=== PATIENT | female | born 1960 | race Caucasian/White ===

== ENCOUNTER 2017-04-28 13:12 | Emergency (ER) | payer BC ==
[2017-04-28 13:20] VITALS: BMI 32.8
[2017-04-28] MEDS ORDERED: CATAPRES TAB 0.2 MG ONE ×3 (13:53→15:41)
[2017-04-28] MEDS ORDERED: CATAPRES TAB 0.2 MG PO ONE ×3 (13:53→15:54)
--- NOTE | 2017-04-28 14:11 | DR.GENAD ---
HPI - PCP Primary Care Physician: KENY - Complaint/Symptoms Chief Complaint Doctors Comments: Patient presents for evaluation of her hypertension. She states that her blood pressure was elevated at her physicians office and was referred to the ED for evaluation. She denies having hypertension although she takes medication intermittently for elevated BP. She also reports that went to her optomitrist due to blurred vision of the left eye and he was concerned and referred her to her primary care physician who sent her to the ED for evaluation and treatment. Her BP upon presentation was 240/ 115. Chief Complaint:: PT WENT TO DOCTOR AND THEY SENT HER TO THE HOSPITAL TO GET HER BLOOD PRESSURE DOWN - Source History Provided: Patient - Mode of Arrival Mode of Arrival: Ambulatory - Timing Onset of Chief Complaint: 04/26/17 PMH - PMH Past Medical History: Yes Past Medical History: Hypertension Past Medical History Comment: NEW ONSET OF HIGH BLOOD PRESSURE OFF AND ON Past Surgical History: Yes Surgical History: , Cholecystectomy, Hysterectomy - Family History History of Family Medical Conditions: Yes Family Medical History: Diabetes Mellitus, Cancer, Heart Failure, Hypertension - Social History Does patient currently use any type of tobacco product: No Have you used tobacco products in the last 12 months: No Type of Tobacco Use: None Does any household member use tobacco: No Alcohol Use: None Do you use any recreational Drugs:: No Lives With: Spouse Lives Where: Home - infectious screening In the last 2 months have you had wt loss of >10#?: NO Have you had fever, night sweats or hemotysis?: No Have you traveled outside the country in the last 6 months?: No Isolation: Standard ROS - Review of Systems Eyes: No Symptoms Reported ENTM: No Symptoms Reported Respiratoy: No Symptoms Reported Cardiovascular: No Symptoms Reported Gastrointestinal/Abdominal: No Symptoms Reported Genitourinary: No Symptoms Reported Neurological: No Symptoms Reported Musculoskeletal: No Symptoms Reported Integumentary: No Symptoms Reported Hematologic/Lymphatic: No Symptoms Reported Endocrine: No Symptoms Reported Psychiatric: No Symptoms Reported All Other Systems: Reviewed and Negative PE - Vital Signs Vitals: Temperature 97.1 F Pulse Rate [Left Brachial] 81 Pulse Rate 90 Respiratory Rate 17 Blood Pressure [Left Arm] 157/72 Blood Pressure 243/103 O2 Sat by Pulse Oximetry 97 - General General Appearance: Alert, In No Apparent Distress - Head Head Exam: Normal Inspection, Atraumatic - Eyes Eye exam: Normal Appearance, PERRL, EOMI - ENT ENT Exam: Normal Exam External Ear Exam: Normal External Inspection TM/Canal Exam: Bilateral Normal Nose Exam: Normal Nose Exam Mouth Exam: Normal Inspection Throat Exam: Normal Inspection - Neck Neck Exam: Normal Inspection, Full ROM - Chest Chest Inspection: Normal Inspection - Respiratory Respiratory Exam: Normal Lung Sounds Bilat Respiratory Exam: Bilateral Clear to Auscultation - Cardiovascular Cardiovascular Exam: Regular Rate, Normal Rhythm - Abdominal Exam Abdominal Exam: Normal Inspection Abdominal Tenderness: negative: RUQ, RLQ, LUQ, LLQ, Epigastrium, Suprapubic, Diffuse, Mild, Moderate, Severe, Other - Extremities Extremities Exam: Normal Inspection, Full ROM - Back Back Exam: Normal Inspection, Full ROM - Neurologic Neurological Exam: Alert, Oriented X3, CN II-XII Intact - Psychiatric Psychiatric Exam: Normal Affect - Skin Skin Exam: Warm, Dry, Intact Course - Reevaluation 1st: Improved (BP 157/72 upon admission s/p treatment) - Consultation Called: 16:40 (Dr Villarreal agreed to accept for admission ) ROR - XRAY XRAY Interpreted by: Radiologist (CT Brain;There are scattered hypodensities in the left frontal lobe, right pretty radiata and bilateral subinsular regions that may reflext chronic ischemic changes versus demyelinating disease. No evidence of acute hemorrhage, midline shift, mass effect or abnormal extra- axial fluid collection. The ventricular system is symmetric and nondilated. The soft tissues and osseous structures are unremarkable. The visualized paranasal sinuses are clear. The globes appear normal. Impressions:Scattered hypodensities in left frontal lobe, right pretty radiata and bilateral subinsular region,; primary differentail considerations would be ischemic changes versus demyelinating disease.) - Diagnosis Discharge Problem: Hypertensive urgency - Discharge Plan Condition: Stable - Follow ups/Referrals Follow ups/Referrals: NFD,None [Primary Care Provider] - 3 days - Instructions
[2017-04-28] MEDS ORDERED: NORMODYNE INJ 20 MG VIAL ONE (16:14)
[2017-04-28] MEDS ORDERED: NORMODYNE INJ 100 MG VIAL IVP ONE (16:19)
[2017-04-28] MEDS ORDERED: NORMODYNE INJ 100 MG VIAL 250 MG in NS 250 ML IV 200 ML IV PRN (16:21)
--- NOTE | 2017-04-28 17:34 | CT ---
HISTORY: Abnormal left eye vision, hypertension Study: CT brain without contrast Comparison: None Technique: Multiple axial images of the brain were obtained from the skull base to the vertex without administra tion of IV contrast. Dose reduction techniques including Automated Exposure Control (AEC) and adjust ment of mA and kV were utilized. Findings: There are scattered hypodensities in the left frontal lobe, right pretty radiata and bilateral subins ular regions that may reflect chronic ischemic changes versus demyelinating disease. No evidence of acute hemorrhage, midline shift, mass effect or abnormal extra-axial fluid collection. The ventricul ar system is symmetric and nondilated. The soft tissues and osseous structures are unremarkable. The visualized paranasal sinuses are clear. The globes appear normal. IMPRESSION: 1. Scattered hypodensities in left frontal lobe, right pretty radiata and bilateral subinsular region ; primary differential considerations would be ischemic changes versus demyelinating disease. Reported By:
[2017-04-28] MEDS ORDERED: NS 1000 ML 1,000 ML IV SCH (18:00)
[2017-04-28] MEDS ORDERED: ZESTRIL TAB 20 MG PO SCH (19:00)
[2017-04-29 06:22] LABS: BASOPHILS % (AUTO) 0.6 % (0.2-1.0); EOSINOPHILS # (AUTO) 0.1 x10^3/uL (0.0-0.2); EOSINOPHILS % (AUTO) 1.5 % (0.9-2.9); HEMATOCRIT 37.8 % (36.0-47.0); HEMOGLOBIN 13.4 g/dL (12.0-16.0); LYMPHOCYTES # (AUTO) 2.5 X10^3/uL (1.3-2.9); LYMPHOCYTES % (AUTO) 29.9 % (21.0-51.0); MEAN CORPUSCULAR HEMOGLOBIN 30.6 pg (27.0-34.0); MEAN CORPUSCULAR HGB CONC 35.5 g/dL (33.0-35.0); MEAN CORPUSCULAR VOLUME 86.2 fL (80.0-100.0); MEAN PLATELET VOLUME 8.6 fL (7.4-11.0); MONOCYTES # (AUTO) 0.6 x10^3/uL (0.3-0.8); MONOCYTES % (AUTO) 6.9 % (0.0-13.0); NEUTROPHILS # (AUTO) 5.1 x10^3/uL (2.2-4.8); NEUTROPHILS % (AUTO) 61.1 % (42.0-75.0); PLATELET COUNT 205 X10^3/uL (150.0-450.0); RED BLOOD COUNT 4.38 X10^6/uL (3.5-5.4); RED CELL DISTRIBUTION WIDTH 12.6 % (11.6-16.5); WHITE BLOOD COUNT 8.4 X10^3/uL (3.6-10.0)
[2017-04-29 07:05] LABS: ALANINE AMINOTRANSFERASE 34 Units/L (12-78); ALBUMIN 3.1 g/dL (3.4-5.0); ALKALINE PHOSPHATASE 63 Units/L (46-116); ASPARTATE AMINO TRANSFERASE 15 Units/L (15-37); BLOOD UREA NITROGEN 13 mg/dL (7-18); CALCIUM 8.3 mg/dL (8.5-10.1); CARBON DIOXIDE 27.6 mmol/L (21-32); CHLORIDE 105 mmol/L (98-107); COR NA(FOR HYPERGLY) 142 mmol/L (136-145); CREATININE 0.83 mg/dL (0.55-1.02); SODIUM 140 mmol/L (136-145); TOTAL PROTEIN 6.3 g/dL (6.4-8.2); eGFR BLACK RACES > 60 (>60); eGFR NON BLACK RACES > 60 (>60)
[2017-04-29] MEDS ORDERED: ZESTRIL TAB 10 MG PO SCH (09:00)
[2017-04-29 10:43] VITALS: BP 169/82
--- NOTE | 2017-05-21 22:45 | DR.CARTERS ---
Short Stay Summary - Short Stay Summary for: Short Stay Summary for Date of:: 04/29/17 - Admission Date Date of Admission: 04/28/17 - Discharge Date Discharge Date: 04/29/17 - Admission Diagnoses (1) Hypertensive urgency Status: Acute - Hospital Course Hospital Course: Patient presented to the emergency room with reports of high blood pressure. Patient seen in our office and referred to emergency room . Patient reported blurred vision to left eye. On arrival to the emergency room patient noted with a blood pressure of 243/103. Patient given Catapres 0.2mg x3 followed by Normodyne 20mg IV x1 with minimal decrease in blood pressure noted. Medical History: UTI's, Carpal Tunnel. Medications: NS @80ml/hr, Catapres 0.2mg po x3, Normodyne 20mg IV x1. Abnormal Labs: MCHC 35.5, Glucose 199, Calcium 8.3, Total Protein 6.3, Albumin 3.1, A/G Ratio 1.0. Brain CT: Scattered hypodensities in left frontal lobe, right pretty radiata and bilateral subinsular region; primary defferential considerations would be ischemic changes versus demyelinating disease. Patient admitted to the hosptial. Patient started on Aspirin 81 po daily, Lisinopril 20mg po daily, and Norvasc 10mg po daily. The next morning, blood pressure was 154/74, pulse 72. Patient reported vision was improved and she felt better. We planned for discharge with medication changes. Instructions for medications and follow up were discussed with patient and family, both voiced understanding. Patient discharged home in stable condition with family. - Discharge Medications Discharge Medications: Aspirin EC [ASPIRIN EC 81 MG *] 81 mg PO DAILY #90 tab 04/29/17 [Rx] Lisinopril 20 mg PO DAILY #30 tablet 04/29/17 [Rx] Metoprolol Succinate Ext Rel [TOPROL XL 25 MG *] 1 tab PO DAILY 05/08/17 Amlodipine Besylate [NORVASC 10 MG *] 10 mg PO DAILY #30 tab 05/09/17 - Discharge Plan Disposition: 01 HOME, SELF-CARE Condition: Stable Prescriptions: Aspirin EC [ASPIRIN EC 81 MG *] 81 mg PO DAILY #90 tab Lisinopril 20 mg PO DAILY #30 tablet - Follow up/Referrals Follow up/Referrals: Miguel Villarreal [STAFF PHYSICIAN] - 05/06/17 10:30 am - Instructions Instructions: Form - Blood Pressure Record Sheet, Hypertension, [id number], Managing Your High Blood Pressure Additional Instructions: DIET TOLERATED. ACTIVITY TOLERATED. Forms: Patient Portal
== END 2017-04-29 11:30 | disposition home or self-care (01) ==
LOC: ER 13:31 → ICU 17:57
PROVIDERS: ADMIT Internal Medicine; ATTEND Internal Medicine
DX: I16.0 Hypertensive urgency (principal); E11.65 Type 2 diabetes mellitus with hyperglycemia; I10 Essential (primary) hypertension; Z79.1 Long term (current) use of non-steroidal anti-inflammatories (NSAID)
CPT/HCPCS: 36415; 70450; 80053; 85025; 96365; 96374; 99283; 99284; 99285; A4216; A4222; G0378; J3490

== ENCOUNTER 2017-05-08 11:23 | Inpatient (IN) | payer BC ==
[2017-05-08] MEDS ORDERED: NS 1/2 1000 ML IV 1,000 ML IV ONE (12:26)
[2017-05-08] MEDS: NS 1/2 1000 ML IV 1,000 ML IV SCH (12:39)
[2017-05-08] MEDS: NORMODYNE INJ 20 MG VIAL IVP PRN ×5 (12:40→17:38)
[2017-05-08 13:10] LABS: BILIRUBIN,URINE NEGATIVE (NEGATIVE); BLOOD/HEMOGLOBIN,URINE 1+ (NEGATIVE); GLUCOSE, URINE NEGATIVE (NEGATIVE); KETONES,URINE NEGATIVE (NEGATIVE); LEUKOCYTE ESTERASE ,URINE NEGATIVE (NEGATIVE); NITRITES,URINE NEGATIVE (NEGATIVE); PROTEIN,URINE 1+ (NEGATIVE); UROBILINOGEN,URINE NORMAL (NORMAL)
[2017-05-08 13:12] LABS: BASOPHILS # (AUTO) 0.1 X10^3/uL (0.0-0.1); BASOPHILS % (AUTO) 0.7 % (0.2-1.0); EOSINOPHILS # (AUTO) 0.1 x10^3/uL (0.0-0.2); EOSINOPHILS % (AUTO) 0.6 % (0.9-2.9); HEMATOCRIT 42.5 % (36.0-47.0); LYMPHOCYTES # (AUTO) 3.2 X10^3/uL (1.3-2.9); LYMPHOCYTES % (AUTO) 36.9 % (21.0-51.0); MEAN CORPUSCULAR HEMOGLOBIN 30.2 pg (27.0-34.0); MEAN CORPUSCULAR HGB CONC 35.1 g/dL (33.0-35.0); MEAN CORPUSCULAR VOLUME 85.9 fL (80.0-100.0); MONOCYTES # (AUTO) 0.5 x10^3/uL (0.3-0.8); MONOCYTES % (AUTO) 6.3 % (0.0-13.0); NEUTROPHILS # (AUTO) 4.8 x10^3/uL (2.2-4.8); NEUTROPHILS % (AUTO) 55.5 % (42.0-75.0); PLATELET COUNT 246 X10^3/uL (150.0-450.0); RED BLOOD COUNT 4.95 X10^6/uL (3.5-5.4); RED CELL DISTRIBUTION WIDTH 12.6 % (11.6-16.5); WHITE BLOOD COUNT 8.7 X10^3/uL (3.6-10.0)
[2017-05-08 13:23] LABS: COLOR,URINE YELLOW (YELLOW)
[2017-05-08 13:24] LABS: APPEARANCE,URINE CLEAR (CLEAR); BACTERIA,URINE TRACE /HPF (NEGATIVE); RBC,URINE 0-1 /HPF (NONE SEEN); SQUAMOUS EPITHELIAL CELL,UR FEW /HPF (NEGATIVE)
[2017-05-08 13:47] LABS: ERYTHROCYTE SEDIMENTATION RATE 8 MM/HOUR (0-20)
[2017-05-08 14:21] LABS: ALANINE AMINOTRANSFERASE 27 Units/L (12-78); ALBUMIN 3.8 g/dL (3.4-5.0); ALKALINE PHOSPHATASE 68 Units/L (46-116); ASPARTATE AMINO TRANSFERASE 13 Units/L (15-37); BLOOD UREA NITROGEN 24 mg/dL (7-18); CARBON DIOXIDE 28.4 mmol/L (21-32); CHLORIDE 104 mmol/L (98-107); CHOL/HDL RATIO 4.1 (0.0-5.0); CHOLESTEROL 239 mg/dL (0-200); CKMB % 1.6 % (<4); COR NA(FOR HYPERGLY) 141 mmol/L (136-145); CREATINE KINASE 126 Units/L (26-192); CREATININE 0.87 mg/dL (0.55-1.02); HDL CHOLESTEROL 59 mg/dL (40-60); SODIUM 140 mmol/L (136-145); TOTAL PROTEIN 7.6 g/dL (6.4-8.2); TRIGLYCERIDES 49 mg/dL (0-150); TROPONIN I < 0.02 ng/mL (0-1.5); eGFR BLACK RACES > 60 (>60); eGFR NON BLACK RACES > 60 (>60)
[2017-05-08 14:26] VITALS: BMI 32.2
--- NOTE | 2017-05-08 14:26 | RAD ---
Examination: Portable AP chest History: Dizzy and hypertension Findings: Normal heart size with clear lungs and pleural spaces. Impression: No acute or significant findings. Reported By:
[2017-05-08 16:23] LABS: CKMB % 1.6 % (<4); CREATINE KINASE 99 Units/L (26-192); CREATINE KINASE MB 1.6 ng/mL (0-4.0); TROPONIN I < 0.02 ng/mL (0-1.5)
--- NOTE | 2017-05-08 17:34 | MRI ---
MR brain without contrast Indication: Dizziness and hypertension. Technique: Multiplanar multi sequence imaging through the brain without contrast. Comparison: 04/28/[address] Findings: Scattered T2 hyperintensities in the left frontoparietal white matter see axial image 28, 2 7 and 23 year noted, visible on diffusion-weighted imaging, but also present on the ADC map suggestin g T2 shine through. These correspond hypodensity seen on CT. There is FLAIR signal abnormality seen o n axial image 21, 19 and 17, with central hypointensity, in a periventricular distribution. There is no extra-axial fluid collection or hemorrhage seen. T1 weighted imaging shows no hemorrhage, with hyp odensity seen in the region of the bright FLAIR signal and diffusion-weighted shine through. Gradient imaging shows no susceptibility artifact. If FLAIR hyperintensities seen in the arina on axial image 9, corresponding to T1 hypo intensity on sagit abe image 13. The pituitary gland appears normal. The orbits appear normal. Upper cervical spine is g rossly intact with disc bulges C4-C5 partially visualized. Paranasal sinuses clear. Bone marrow signa l is normal. No vascular flow void abnormality identified on T2 weighted imaging. No mass identified. Impression: 1. Periventricular cerebral T2 hyperintensities, with T1 hypointensity, also involving the arina. Thes e could reflect changes of old lacunar infarction microangiopathy put demyelinating disease and other white matter disease should be excluded. Urology follow-up recommended. 2. Upper cervical spine degenerative change, mild cerebral atrophy and other findings as above. No ev idence of acute infarction or hemorrhage. Reported By:
[2017-05-08] MEDS: NORVASC TAB 10 MG PO SCH (18:23)
--- NOTE | 2017-05-08 19:07 | CT ---
CT angiogram abdomen with and without IV contrast Indication: Evaluate for renal artery stenosis. Dizziness and hypertension. Technique: Helical images through the abdomen before and after IV contrast per protocol. Coronal and sagittal reformats provided. MIP images provided. Findings: Limited images through the lower chest show no acute abnormality. Review of bone windows sh ows mild spine disc degenerative change and facet arthropathy without destructive osseous lesion. Noncontrast imaging: Scattered aortic calcifications noted. No renal stone noted. Cholecystectomy cli ps seen. Few coronary artery calcifications partially visualized. Postcontrast imaging: The liver, spleen, adrenal glands, pancreas, stomach and visualized bowel loops show no acute abnormality. Angiogram: The celiac axis and branch vessels are normal. The SMA and distal branches are normal. The PEDRO is normal. There is small accessory left renal artery supplying the left lower pole. Single righ t renal artery is normal. Minimal scattered aortic plaque noted without dissection, aneurysm or steno sis. Visualized iliac vessels appear normal. Impression: 1. Minimal vascular calcifications without significant renal artery stenosis or other vascular pathol ogy seen. 2. No other acute abnormality. Reported By:
[2017-05-08 21:45] LABS: CKMB % 1.5 % (<4); CREATINE KINASE 94 Units/L (26-192); CREATINE KINASE MB 1.4 ng/mL (0-4.0); TROPONIN I < 0.02 ng/mL (0-1.5)
[2017-05-09 06:55] LABS: BASOPHILS % (AUTO) 0.5 % (0.2-1.0); EOSINOPHILS # (AUTO) 0.1 x10^3/uL (0.0-0.2); EOSINOPHILS % (AUTO) 1.1 % (0.9-2.9); HEMATOCRIT 40.1 % (36.0-47.0); LYMPHOCYTES # (AUTO) 2.8 X10^3/uL (1.3-2.9); LYMPHOCYTES % (AUTO) 35.6 % (21.0-51.0); MEAN CORPUSCULAR HGB CONC 34.9 g/dL (33.0-35.0); MEAN PLATELET VOLUME 9.4 fL (7.4-11.0); MONOCYTES # (AUTO) 0.6 x10^3/uL (0.3-0.8); MONOCYTES % (AUTO) 7.3 % (0.0-13.0); NEUTROPHILS # (AUTO) 4.4 x10^3/uL (2.2-4.8); NEUTROPHILS % (AUTO) 55.5 % (42.0-75.0); PLATELET COUNT 220 X10^3/uL (150.0-450.0); RED BLOOD COUNT 4.67 X10^6/uL (3.5-5.4); RED CELL DISTRIBUTION WIDTH 12.6 % (11.6-16.5)
[2017-05-09 08:05] LABS: ALANINE AMINOTRANSFERASE 23 Units/L (12-78); ALBUMIN 3.4 g/dL (3.4-5.0); ALKALINE PHOSPHATASE 63 Units/L (46-116); ASPARTATE AMINO TRANSFERASE 15 Units/L (15-37); BLOOD UREA NITROGEN 16 mg/dL (7-18); CALCIUM 8.7 mg/dL (8.5-10.1); CARBON DIOXIDE 24.6 mmol/L (21-32); CHLORIDE 105 mmol/L (98-107); COR NA(FOR HYPERGLY) 142 mmol/L (136-145); CREATININE 0.77 mg/dL (0.55-1.02); SODIUM 141 mmol/L (136-145); eGFR BLACK RACES > 60 (>60); eGFR NON BLACK RACES > 60 (>60)
[2017-05-09] MEDS ORDERED: ZESTRIL TAB 20 MG ONE (08:21)
[2017-05-09] MEDS: NORVASC TAB 10 MG PO SCH (08:27)
[2017-05-09] MEDS ORDERED: TOPROL XL PO SCH (09:00)
[2017-05-09] MEDS ORDERED: ZESTRIL TAB 20 MG PO SCH (09:00)
[2017-05-09] MEDS ORDERED: ASPIRIN EC 81 MG PO SCH (13:00)
[2017-05-09 16:02] VITALS: BP 166/79
[2017-05-09] MEDS: NS 1/2 1000 ML IV 1,000 ML IV SCH (16:25)
== END 2017-05-09 17:30 | disposition home or self-care (01) | DRG 305 ==
LOC: ICU 11:23 → OBSVTOIN 14:00
PROVIDERS: ADMIT Internal Medicine; ATTEND Internal Medicine
DX: I16.0 Hypertensive urgency (principal); R42 Dizziness and giddiness; R11.2 Nausea with vomiting, unspecified
CPT/HCPCS: 36415; 70551; 71045; 74175; 80053; 80061; 81001; 82550; 82553; 83036; 84484; 85025; 85652; 86140; 93005; A4222; G0378; J3490

== ENCOUNTER → 2017-07-17 | Outpatient (CLI) | payer BC ==
[2017-06-11 08:19] VITALS: BP 135/67
[2017-07-17 10:35] LABS: CREATININE 0.89 mg/dL (0.55-1.02)
--- NOTE | 2017-07-17 12:37 | MRI ---
MRI cervical spine without and with contrast Indication: Demyelinating disease of the [employer]. Headaches, seizure. Comparison: None Technique: Multiplanar multi sequence MR images of the cervical spine were obtained without and with IV gadolinium contrast (17 mL Omniscan). Findings: There is T2 hyperintense, T1 hypointense lesion within the dorsal arina, without associated enhancement, similar to the most recent MRI of the brain from 06/08/2017. There is a T2 hyperintense round focus within the left middle cerebellar peduncle (image 13, series 501), not present on the erlin or study. The craniocervical junction is unremarkable. There is mild straightening of the normal cervical lordosis, likely positional or related to degenera tive disease. Multilevel degenerative changes are discussed on a level by level basis below. There is no evidence for acute cervical spine fracture or suspicious marrow signal. No abnormal cord signal o r enhancement is identified. The paravertebral soft tissues are unremarkable. C2-3: Unremarkable. C3-4: There is minimal discogenic and bilateral uncovertebral degenerative disease, without significa nt foraminal or canal narrowing. C4-5: There is discogenic and bilateral uncovertebral degenerative disease and mild bilateral facet a rthropathy, with broad-based posterior disc bulge flattening the anterior cord and mildly narrowing t he canal, without abnormal cord signal. There is mild bilateral neural foraminal narrowing. C5-6: There is moderate discogenic and bilateral uncovertebral degenerative disease and mild bilatera l facet arthropathy. There is broad-based posterior disc and osteophyte complex with left paracentral component flattening the cord and moderately narrowing the spinal canal, without abnormal cord signa l. There is moderate left and mild right neural foraminal narrowing. C6-7: There is mild discogenic and bilateral uncovertebral DJD with minimal broad-based posterior dis c bulge, without significant spinal canal narrowing. There is minimal bilateral neural foraminal narr owing. C7-T1: Unremarkable. Impression: 1. Multilevel cervical spondylosis, most marked at C5-6 with associated canal and neural foraminal na rrowing as above. 2. No abnormal cord signal or enhancement to suggest demyelination. 3. There is a new T2 hyperintense lesion within the left middle cerebellar peduncle, suggestive for a n area of demyelination, although without evidence for active disease. This can be further evaluated with dedicated MRI of the brain with contrast, if indicated. 4. Stable T1 hypointense/T2 hyperintense pontine lesion, suggestive for chronic demyelination ('Black hole'). Reported By:
== END ==
LOC: RAD 09:46
PROVIDERS: ATTEND Psychiatry & Neurology Neurology
DX: G37.9 Demyelinating disease of central nervous system, unspecified (principal); S24.112S Complete lesion at T2-T6 level of thoracic spinal cord, sequela; X58.XXXS Exposure to other specified factors, sequela
CPT/HCPCS: 36415; 72156; 82565; 84520